=== PATIENT | male | born 1990 | race Caucasian/White ===

== ENCOUNTER 2021-01-19 13:09 | Emergency (ER) | payer OTHER, SELFPAY ==
[2021-01-19 13:55] VITALS: BP 150/74; PULSE 67; RESP 16; TEMP 36.2; O2SAT 98
--- NOTE | 2021-01-19 14:06 | ED.DENTAL ---
HPI - Dental/Oral General Chief complaint: Dental/Oral Stated complaint: left side of face swollen tooth pain Time Seen by Provider: 01/19/21 14:07 Source: patient Limitations: no limitations History of Present Illness HPI Narrative: Ankush Husain is a 30 yo male no PMH has had tooth pain for the last day or 2, he does not have a medical card currently to schedule a visit with a dentist and is complaining of left upper tooth pain with facial swelling; rates pain a 6 out of 10, states it is sharp and throbbing Related Data Allergies Allergy/AdvReac Type Severity Reaction Status Date / Time Penicillins Allergy Mild STOPS Unverified 01/19/21 13:37 BREATHING PENICILLIN Allergy Severe Anaphylactic Uncoded 09/19/20 09:00 Shock Review of Systems Review of Systems: Narrative: CONSTITUTIONAL: Denies fever, chills, sweats. EYES: Denies visual changes, redness, discharge. ENT: Denies rhinorrhea, congestion, sore throat, otalgia. Dental abscess with left swollen cheek CARDIOVASCULAR: Denies chest pain, palpitations, edema. RESPIRATORY: Denies dyspnea, wheezing, cough GASTROINTESTINAL: Denies abdominal pain, nausea, vomiting, diarrhea. GENITOURINARY: Denies dysuria, hematuria, abnormal discharge SKIN: Denies rash or itching. NEUROLOGIC: Denies numbness, or focal weakness. PSYCHIATRIC: Denies anxiety or depression. PMFSH Past Medical History Medical History No acute medical problems Family History Family History Other Diabetes mellitus Heart disease Social History Social History (Updated 01/19/21 @ 14:16 by Alejandra Johnson CNP) Smoking packs per day: 0.5 Smoking cigarettes per day: 10.0 Smoking status: Current every day smoker Tobacco type: cigarettes Alcohol intake: current Gender identity (if verbalized by the patient): Male Comments At time of signature, I agree with nursing past medical, surgical, social and family history. There is no relevant family history pertinent to the presenting complaint. Exam Narrative: Exam Narrative: GENERAL: This is a well-nourished, well-developed patient, in moderate distress. HEAD: normocephalic, atraumatic. EYES: Sclera clear/white. Vision is grossly intact. EARS: External ears normal, . Hearing grossly intact. NOSE: External nose normal without nasal discharge, nares without redness, no rhinorrhea. Mouth: Abscess over tooth 13 with hard abscess occlusion of the gum and left swollen cheek, abscess is not fluctuant; dentition is poor THROAT: Mucous membranes moist, posterior pharynx pink NECK: Neck supple, non-tender CARDIOVASCULAR: Regular rate and rhythm without murmurs, gallops, or rubs. RESPIRATORY: Clear to auscultation. Breath sounds equal bilaterally. No wheezes, rales, or rhonchi. GASTROINTESTINAL: Abdomen soft, non-tender, SKIN: warm, intact with no suspicious lesions or rash, good texture and turgor. NEURO: awake, alert, and oriented to person, place and time. There were no obvious focal neurologic abnormalities. Steady gait EXTREMITIES: Normal range of motion. BACK: Nontender without deformity Course Course Emergency Course: [facility] with complaints of left-sided dental pain with swelling and cheek Patient started on clindamycin high-dose ibuprofen and hydrocodone; given dental list Vital Signs Vital signs: Vital Signs Temperature 97.2 F L 01/19/21 13:55 Pulse Rate 67 01/19/21 13:55 Respiratory Rate 16 01/19/21 13:55 Blood Pressure 150/74 H 01/19/21 13:55 Pulse Oximetry 98 01/19/21 13:55 Temperature 97.2 F L 01/19/21 13:55 Pulse Rate 67 01/19/21 13:55 Respiratory Rate 16 01/19/21 13:55 Blood Pressure 150/74 H 01/19/21 13:55 Pulse Oximetry 98 01/19/21 13:55 MDM - Dental/Oral Differential Diagnosis Differential diagnosis: Likely dental caries, dental abscess, fracture o
== END 2021-01-19 14:27 | disposition home or self-care (01) ==
PROVIDERS: Emergency Provider Nurse Practitioner
DX: K04.7 Periapical abscess without sinus (principal); F17.210 Nicotine dependence, cigarettes, uncomplicated
CPT/HCPCS: 99213; G0463

== ENCOUNTER 2021-09-27 10:48 | Emergency (ER) | payer OTHER, SELFPAY ==
[2021-09-27 10:55] VITALS: BP 138/73; PULSE 82; RESP 16; TEMP 36.6; O2SAT 98
--- NOTE | 2021-09-27 11:08 | ED.URI ---
HPI - URI/Sore Throat General Chief Complaint: Upper Respiratory Infection Stated Complaint: congestion Time Seen by Provider: 09/27/21 11:08 Source: patient Mode of arrival: ambulatory Limitations: no limitations History of Present Illness HPI Narrative: Ankush Aguilar is a 30 yo male with no PMH who [facility] with 3 days of congestion, cough, sore throat, subjective congestion; patient has taken nothing for his symptoms today and took a dose of a cold medication yesterday. 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 Related Data Allergies Allergy/AdvReac Type Severity Reaction Status Date / Time Penicillins Allergy Mild STOPS Unverified 01/19/21 13:37 BREATHING PENICILLIN Allergy Severe Anaphylactic Uncoded 09/19/20 09:00 Shock Review of Systems Review of Systems: CONSTITUTIONAL: Denies fever, chills, sweats. EYES: Denies visual changes, redness, discharge. ENT: Has rhinorrhea, has congestion, has sore throat, no otalgia. CARDIOVASCULAR: Denies chest pain, palpitations, edema. RESPIRATORY: Denies dyspnea, wheezing, cough GASTROINTESTINAL: Denies abdominal pain, nausea, vomiting, diarrhea. GENITOURINARY: Denies dysuria, hematuria, abnormal discharge SKIN: Denies rash or itching. NEUROLOGIC: Denies numbness, or focal weakness. PSYCHIATRIC: Denies anxiety or depression. PMFSH Past Medical History Medical History No acute medical problems Family History Family History Other Diabetes mellitus Heart disease Social History Social History Smoking packs per day: 0.5 Smoking cigarettes per day: 10.0 Smoking status: Current every day smoker Tobacco type: cigarettes Alcohol intake: current Gender identity (if verbalized by the patient): Male Comments At time of signature, I agree with nursing past medical, surgical, social and family history. There is no relevant family history pertinent to the presenting complaint. Exam Narrative: GENERAL: This is a well-nourished, well-developed patient, in mild distress. HEAD: normocephalic, atraumatic. EYES: . Sclera clear/white. Vision is grossly intact. EARS: External ears normal, auditory canals erythema and without drainage, TMs normal without perforation. Hearing grossly intact. NOSE: External nose normal with nasal discharge, nares with redness, no rhinorrhea. THROAT: Mucous membranes moist, posterior pharynx mild erythema NECK: Neck supple, non-tender CARDIOVASCULAR: Regular rate and rhythm without murmurs, gallops, or rubs. RESPIRATORY: Clear to auscultation. Breath sounds equal bilaterally. No wheezes, rales, or rhonchi. GASTROINTESTINAL: Abdomen soft, SKIN: warm, intact with no suspicious lesions or rash, good texture and turgor. NEURO: awake, alert, and oriented to person, place and time. There were no obvious focal neurologic abnormalities. Steady gait EXTREMITIES: Normal range of motion. BACK: Nontender without deformity Course Course Emergency Course: Patient here with upper respiratory symptoms, subjective fever Strep test- negative Flu test- negative Covid test- negative Started on zyrtec, prednisone, tessalon perles Vital Signs Vital signs: Vital Signs Temperature 97.8 F 09/27/21 10:55 Pulse Rate 82 09/27/21 10:55 Respiratory Rate 16 09/27/21 10:55 Blood Pressure 138/73 09/27/21 10:55 Pulse Oximetry 98 09/27/21 10:55 Temperature 97.8 F 09/27/21 10:55 Pulse Rate 82 09/27/21 10:55 Respiratory Rate 16 09/27/21 10:55 Blood Pressure 138/73 09/27/21 10:55 Pulse Oximetry 98 09/27/21 10:55 MDM - URI/Sore Throat Differential Diagnosis Differential diagnosis: Likely upper respiratory infection, otitis media, sinusitis, viral infection, influenza, pharyngitis and other Lab Data Labs: Lab Results
== END 2021-09-27 11:27 | disposition home or self-care (01) ==
PROVIDERS: Emergency Provider Nurse Practitioner
DX: J06.9 Acute upper respiratory infection, unspecified (principal); Z20.822 Contact with and (suspected) exposure to COVID-19; F17.210 Nicotine dependence, cigarettes, uncomplicated
CPT/HCPCS: 87081; 87426; 87804; 87880; 99213; C9803; G0463

== ENCOUNTER 2021-10-06 11:36 | Emergency (ER) | payer OTHER, SELFPAY ==
[2021-10-06 11:42] VITALS: BP 145/67; PULSE 66; RESP 16; TEMP 36.4; O2SAT 99
--- NOTE | 2021-10-06 13:17 | ED.DENTAL ---
HPI - Dental/Oral General Chief complaint: Dental/Oral Stated complaint: Tooth Pain Time Seen by Provider: 10/06/21 13:12 Source: patient and RN notes reviewed Mode of arrival: ambulatory Limitations: no limitations History of Present Illness HPI Narrative: Patient presents today complaining of right upper lateral dental pain x3 days. He cannot pinpoint a specific tooth, does report facial swelling that started yesterday. Currently rates his pain 6/10 which increases with touching the area. He has been taking ibuprofen with mild relief. He does not currently have a dentist and is having difficulty finding one due to his insurance. MD Complaint: tooth pain Related Data Allergies Allergy/AdvReac Type Severity Reaction Status Date / Time Penicillins Allergy Mild STOPS Unverified 01/19/21 13:37 BREATHING PENICILLIN Allergy Severe Anaphylactic Uncoded 09/19/20 09:00 Shock Review of Systems Review of Systems: CONSTITUTIONAL: Denies body aches, fever, chills, or sweats. EYES: Denies visual changes, redness, or discharge. ENT: Denies rhinorrhea, congestion, sore throat, or otalgia.+ Dental pain and facial swelling CARDIOVASCULAR: Denies chest pain, palpitations, or edema. RESPIRATORY: Denies cough or dyspnea. GASTROINTESTINAL: Denies abdominal pain, nausea, vomiting, or diarrhea. GENITOURINARY: Denies dysuria or hematuria. SKIN: Denies rash, itching, or wounds. MUSCULOSKELETAL: Denies back pain, joint pain, or myalgia. NEUROLOGIC: Denies headache, numbness, tingling, or weakness. PSYCH: Denies depression or anxiety. [facility] Past Medical History Medical History No acute medical problems Family History Family History Other Diabetes mellitus Heart disease Social History Social History Smoking packs per day: 0.5 Smoking cigarettes per day: 10.0 Smoking status: Current every day smoker Tobacco type: cigarettes Alcohol intake: current Gender identity (if verbalized by the patient): Male Comments At time of signature, I have reviewed and agree with nursing past medical, surgical, social and family history unless otherwise noted. Please see nursing chart for further information. There is no relevant family history pertinent to the presenting complaint Exam Narrative: GENERAL: Well-appearing, well-nourished, and in no acute distress. HEAD: Normocephalic, atraumatic. EYES: EOMI. No redness or drainage. Conjunctivae normal. ENT: Mucous membranes pink and moist. Throat normal. Uvula midline. Gross dental decay with multiple dental caries. Right upper jaw swelling. Tenderness to the right lateral arch without obvious periapical abscess. Patient states he has already popped his periapical abscess. NECK: Normal AROM. CHEST: No respiratory distress. Clear to auscultation. HEART: Regular rate and rhythm. No murmur appreciated. Normal peripheral pulses. EXTREMITIES: Normal range of motion. No edema. SKIN: Warm, dry, no rash. Capillary refill normal. Normal skin turgor. NEURO: No focal deficits. Alert and oriented x3. Gait steady. PSYCH: Normal affect. No signs of depression or anxiety. Course Vital Signs Vital signs: Vital Signs Temperature 97.6 F 10/06/21 11:42 Pulse Rate 66 10/06/21 11:42 Respiratory Rate 16 10/06/21 11:42 Blood Pressure 145/67 H 10/06/21 11:42 Pulse Oximetry 99 10/06/21 11:42 Temperature 97.6 F 10/06/21 11:42 Pulse Rate 66 10/06/21 11:42 Respiratory Rate 16 10/06/21 11:42 Blood Pressure 145/67 H 10/06/21 11:42 Pulse Oximetry 99 10/06/21 11:42 Reviewed. Pt has been instructed to follow up with his PCP regarding his elevated blood pressure today. MDM - Dental/Oral Differential Diagnosis Differential diagnosis: Likely gingival abscess, dental caries, toothac
== END 2021-10-06 13:24 | disposition home or self-care (01) ==
PROVIDERS: Emergency Provider Nurse Practitioner
DX: K04.7 Periapical abscess without sinus (principal); F17.210 Nicotine dependence, cigarettes, uncomplicated
CPT/HCPCS: 99213; G0463

== ENCOUNTER 2023-01-24 10:58 | Emergency (ER) | payer OTHER, SELFPAY ==
[2023-01-24 11:45] VITALS: BP 139/78; PULSE 70; RESP 16; TEMP 36.9; O2SAT 99
--- NOTE | 2023-01-24 12:42 | ED.MALEGU ---
HPI - Male Genitourinary General Chief complaint: Urogenital-Male Stated complaint: STD Time Seen by Provider: 01/24/23 12:42 Source: patient, RN notes reviewed and old records reviewed Mode of arrival: ambulatory Limitations: no limitations History of Present Illness HPI Narrative: 32-year-old male presents to the [facility] with concerns for an STD. Patient reports penile discharge without rash or tenderness. Denies abdominal pain, nausea, vomiting. States he a discharge was this morning. Has recently had unprotected sex with a new partner Related Data Sexually active: Yes Allergies Allergy/AdvReac Type Severity Reaction Status Date / Time Penicillins Allergy Mild STOPS Verified 01/24/23 11:44 BREATHING PENICILLIN Allergy Severe Anaphylactic Uncoded 01/24/23 11:44 Shock Review of Systems Review of Systems: All systems reviewed & are unremarkable except as noted in HPI and below Constitutional: Constitutional: Reports no additional constitutional complaints Eyes: Eyes: Reports no additional eye complaints ENT: Reports system reviewed and no additional complaints, except as documented Cardiovascular: Cardiovascular: Reports no additional cardiovascular complaints, Denies chest pain and Denies dyspnea Respiratory: Respiratory: Reports no additional respiratory complaints, Denies chest congestion, Denies cough and Denies dyspnea Gastrointestinal: Gastrointestinal: Reports no additional gastrointestinal complaints, Denies abdominal pain, Denies nausea and Denies vomiting Genitourinary: Genitourinary: Reports as per HPI and Reports penile discharge Musculoskeletal: Musculoskeletal: Reports no additional musculoskeletal complaints Integumentary/Breasts: Skin/Breast: Reports system reviewed and no additional complaints, except as docu Neurologic: Reports system reviewed and no additional complaints, except as documented Psychiatric: Psychiatric: Reports no additional psychiatric complaints Allergic/Immunologic: Allergic/Immunologic: Reports no additional allergic/immunologic complaints [facility] Past Medical History Medical History No acute medical problems Family History Family History Other Diabetes mellitus Heart disease Social History Social History Smoking packs per day: 0.5 Smoking cigarettes per day: 10.0 Smoking status: Current every day smoker Tobacco type: cigarettes Alcohol intake: current Gender identity (if verbalized by the patient): Male Comments At the time of my signature, I reviewed and agree with the nursing past medical, surgical, social, and family history. There is no relevant family history pertinent to the patient complaint. Exam Const: General: cooperative, healthy appearing, comfortable, no acute distress, well developed, alert and well nourished Nutritional Appearance: well nourished Orientation/consciousness: patient oriented x3 Limitations: no limitations HENMT: Head: normal to inspection Ears: hearing grossly normal bilaterally and external ears normal Face/Nose/Sinus: Normal external nose present, Normal nares present, Normal nasal mucous membranes and turbinates present and normal facial exam Face and sinus: normal facial exam Mouth: Yes Normal oral and palatal mucosa present, Yes lip normal and Yes moist mucous membranes Eyes: General: appearance normal, both eyes and all related structures Alignment and Position: alignment normal Periorbital: periorbital findings normal Conjunctivae: conjunctivae normal Pupils: Equal, round and reactive pupils present EOM: EOMs intact bilaterally Neck: Neck: normal visual inspection, full ROM, no lymphadenopathy and no meningeal signs Chest: Chest palpation & inspection: normal inspection of the chest Resp: Effort & Inspection: normal respiratory e
== END 2023-01-24 13:03 | disposition home or self-care (01) ==
PROVIDERS: Emergency Provider Nurse Practitioner
DX: A54.9 Gonococcal infection, unspecified (principal); F17.210 Nicotine dependence, cigarettes, uncomplicated
CPT/HCPCS: 87491; 87591; 87661; 99214; G0463

== ENCOUNTER 2023-03-15 09:28 | Emergency (ER) | payer OTHER, SELFPAY ==
[2023-03-15 09:42] VITALS: BP 151/64; PULSE 61; RESP 16; TEMP 36.8; O2SAT 97
[2023-03-15 10:36] LABS: Appearance Urine Cloudy (Clear); Bacteria Urine None Seen /hpf; Bilirubin Urine 1+ (Negative); Blood Urine Negative (Negative); Color Urine Dark Yellow (Yellow); Glucose Urine UA Negative (Negative); Ketones Urine 1+ mg/dL (Negative); Leukocyte Esterase Ur 2+ LEU/UL (Negative); Mucus Urine Present /lpf; Nitrate Urine Negative (Negative); Protein Urine Trace mg/dL (Negative); RBC Urine 0-2 /hpf (0-2); Specific Grav Ur 1.025 (1.001-1.035); Squamous Epithelial Cell Urine None seen /hpf (Few); WBC Urine >100 /hpf; pH Urine 5.5 (5.0-9.0)
[2023-03-15 10:39] LABS: Add Urine Microscopic? YES
[2023-03-15] MEDS: cefTRIAXone 1 GM VIAL 0.5 GM IM (10:47)
[2023-03-15] MEDS: WATER, STERILE FOR INJECTION 10 ML VIAL XX (10:48)
--- NOTE | 2023-03-15 10:57 | ED.MALEGU ---
HPI - Male Genitourinary General Chief complaint: Urogenital-Male Stated complaint: STI Time Seen by Provider: 03/15/23 09:50 History of Present Illness HPI Narrative: 32-year-old male presents with continuing penile discharge. Patient states he went to urgent care for symptoms and tested positive for gonorrhea. Patient states he was giving pills but instructed he could not receive Rocephin injection related to penicillin allergy. Patient instructed to go to the ER after a positive test for injection of Rocephin. Patient denies any testicular pain fevers or urinary symptoms. No other complaints Onset (ago): week(s) (1) Associated symptoms: Reports denies other symptoms Related Data Allergies Allergy/AdvReac Type Severity Reaction Status Date / Time Penicillins Allergy Mild STOPS Verified 03/15/23 09:44 BREATHING PENICILLIN Allergy Severe Anaphylactic Uncoded 01/24/23 11:44 Shock Review of Systems Review of Systems: A 10 system review of systems was completed on the patient and is negative except for what is stated in the HPI. Nursing and ancillary documentation was reviewed. [facility] Past Medical History Medical History No acute medical problems Family History Family History Other Diabetes mellitus Heart disease Social History Social History Smoking packs per day: 0.5 Smoking cigarettes per day: 10.0 Smoking status: Current every day smoker Tobacco type: cigarettes Alcohol intake: current Gender identity (if verbalized by the patient): Male Exam Narrative: GENERAL: Well-appearing, well-nourished, and in no acute distress. HEAD: Normocephalic, atraumatic. EYES: PERRLA and EOMI. ENT: Nares clear, no rhinorrhea or epistaxis. Mucous membranes moist. NECK: Supple. CHEST: Clear to auscultation. No respiratory distress. HEART: Regular rate and rhythm. No murmur heard. Normal peripheral pulses. ABDOMEN: Soft, nontender, nondistended, normal active bowel sounds. EXTREMITIES: Normal range of motion. No edema. SKIN: Warm, dry, no rash. NEURO: No focal deficits. Alert and oriented x3. PSYCH: Normal mood and affect. Course Course Emergency Course: Patient states he has never had an allergic reaction to penicillin but his father was allergic so always told not to take penicillin. Will give dose of Rocephin and watch patient for 30 minutes. No further testing needed. Vital Signs Vital signs: Vital Signs Temperature 36.8 C 03/15/23 09:42 Pulse Rate 61 03/15/23 09:42 Respiratory Rate 16 03/15/23 09:42 Blood Pressure 151/64 H 03/15/23 09:42 Pulse Oximetry 97 03/15/23 09:42 Temperature 36.8 C 03/15/23 09:42 Pulse Rate 61 03/15/23 09:42 Respiratory Rate 16 03/15/23 09:42 Blood Pressure 151/64 H 03/15/23 09:42 Pulse Oximetry 97 03/15/23 09:42 MDM - Male Genitourinary MDM Narrative Medical decision making narrative: UTI versus gonorrhea versus chlamydia Lab Data Labs: Lab Results 03/15/23 Range/Units 10:13 Urine Color Dark yellow (Yellow) Urine Appearance Cloudy H (Clear) Urine pH 5.5 (5.0-9.0) Ur Specific [place] 1.025 (1.001-1.035) Urine Protein Trace (Negative) mg/dL Urine Glucose (UA) Negative (Negative) mg/dL Urine Ketones 1+ H (Negative) mg/dL Ur Blood (Man) Negative (Negative) Urine Nitrate Negative (Negative) Urine Bilirubin 1+ H (Negative) Urine Urobilinogen 1.0 (<2.0) mg/dL Leukocyte Esterase Rfl 2+ H (Negative) DAV/UL Urine RBC 0-2 (0-2) /hpf Urine WBC >100 H /hpf Ur Squamous Epith Cells None seen (Few) /hpf Urine Bacteria None seen /hpf Urine Casts 3-5 Urine Mucus Present /lpf C.trachomatis RNA (TMA) Pending N.gonorrhoeae RNA (TMA) Pending Discharge Plan Discharge Clinica
== END 2023-03-15 11:12 | disposition home or self-care (01) ==
PROVIDERS: Emergency Provider Nurse Practitioner Family
DX: A54.9 Gonococcal infection, unspecified (principal); R36.9 Urethral discharge, unspecified; F17.210 Nicotine dependence, cigarettes, uncomplicated
CPT/HCPCS: 81001; 87086; 87088; 87491; 87591; 96372; 99283; J0696

== ENCOUNTER 2024-02-07 10:12 | Emergency (ER) | payer BC, SELFPAY ==
--- NOTE | 2024-02-07 10:22 | ED.SKABFB ---
HPI - Skin/Abscess/Foreign Bdy General Chief complaint: Skin/Abscess/Foreign Body Stated complaint: fish hook in finger right hand Time Seen by Provider: 02/07/24 10:17 Source: patient Mode of arrival: ambulatory Limitations: no limitations History of Present Illness HPI narrative: Ankush is a 33-year-old male patient presenting to the clinic today with complaints of a fishhook stuck in to his right 4th finger. He reports that this occurred about half an hour ago. He attempted to get it out without success. Tetanus shot is up-to-date Related Data Home Medications Medication Instructions Recorded Confirmed No Home Medications 02/07/24 02/07/24 Allergies Allergy/AdvReac Type Severity Reaction Status Date / Time Penicillins Allergy Mild STOPS Verified 02/07/24 10:46 BREATHING PENICILLIN Allergy Severe Anaphylactic Uncoded 02/07/24 10:46 Shock Review of Systems Review of Systems: Pertinent positives per HPI. Patient denies any fever, chills, rash, headache, visual changes, dizziness, cough, runny nose, sore throat, shortness of breath, chest pain, palpitations, nausea, vomiting, diarrhea, constipation, abdominal pain, or any urinary issues. PMFSH Past Medical History Medical History No acute medical problems Family History Family History Other Diabetes mellitus Heart disease Social History Social History Smoking packs per day: 0.5 Smoking cigarettes per day: 10.0 Smoking status: Current every day smoker Tobacco type: cigarettes Alcohol intake: current Gender identity (if verbalized by the patient): Male Comments At the time of my signature, I reviewed and agree with the nursing past medical, surgical, social, and family history. There is no relevant family history pertinent to the patient complaint. Exam Narrative: General: Well-developed, well nourished, in no apparent distress Head: Normocephalic, atraumatic. Cardio: Regular rate and rhythm, s1 and s2 normal, no murmur appreciated. Resp: Clear to auscultation bilaterally, no rhonchi, rales, wheezing or rubs. Integumentary: [place], warm, and dry, large fishhook with the [place] stuck in to the 4th right distal lateral volar finger Course Course Emergency Course: Portions of this record may have been created with voice recognition software. Level of Care: Express Care Visit Vital Signs Vital signs: Vital signs reviewed Procedures Foreign Body Removal Foreign Body #1: Foreign Body Removal Date: 02/07/24 Site: right (4th finger) Description of foreign body: fish hook Sedation/Analgesia: none Technique: removal with forceps Confirmed by:: direct visualization, patient report and palpation Complications: none Post-procedure exam: awake, alert, normal BP, normal HR and normal O2 sat Neurovascular: normal distal pulse, normal capillary fill and no change from pre-procedure Foreign Body Removal Narrative: Verbal consent was obtained for fishhook removal from the right 4th finger. Area was cleansed with antiseptic soap and 2 mL of lidocaine was injected around the foreign body insertion site. Anesthesia was well appropriate and tolerated. Needle forceps was then used to back the fishhook out of the skin successfully, patient tolerated procedure well. Area was re-cleansed with antiseptic soap and triple antibiotic ointment and Band-Aid was applied. MDM - Skin/Abscess/Foreign Bdy MDM Narrative Medical decision making narrative: At the time of visit patient is resting comfortably on the exam table. Patient appears to be nontoxic. Procedure: [place] removal from soft tissue of the right 4th finger was performed in the clinic today. Patient tolerated procedure well. Plan: Patient
[2024-02-07 10:25] VITALS: BP 126/75; PULSE 72; RESP 18; TEMP 36.2; O2SAT 100
[2024-02-07] MEDS: LIDOCAINE HCL 1% LOCAL INJ 2 ML AMPUL INFILTRATE (10:36)
== END 2024-02-07 10:47 | disposition home or self-care (01) ==
PROVIDERS: Emergency Provider Nurse Practitioner Family
DX: S61.244A Puncture wound with foreign body of right ring finger without damage to nail, initial encounter (principal); X58.XXXA Exposure to other specified factors, initial encounter; F17.210 Nicotine dependence, cigarettes, uncomplicated
CPT/HCPCS: 99212; G0463